=== PATIENT | male | born 1965 | race Caucasian/White ===

== ENCOUNTER 2020-10-28 06:57 | Day surgery (SDC) | payer BC, MEDICAID ==
[2020-10-22 13:48] VITALS: BMI 34.9
[~2020-10-28 06:57] MED LIST: ACETAMINOPHEN TAB 500 MG TAB PO PRN; DEXAMETHASONE SOD PHOSPHATE 4 MG/ML 1 ML VIAL IV ONE; HEPARIN SODIUM,PORCINE 5,000 UNIT/ML 1 ML VIAL SQ PRN; LACTATED RINGERS 1,000 ML IV SCH; LIDOCAINE 1% (10MG/ML) FOR IV START INTRADERMA PRN; ONDANSETRON 4 MG/2 ML VIAL IVP ONE; Pre Op ABX Message 1 EACH MISC MISCELLANE ONE
--- NOTE | 2020-10-28 08:59 | P.GSHP ---
History of Present Illness H&P Date: 10/28/20 Chief Complaint: Muscle weakness This a 55-year-old male presents today for left thigh muscle biopsy. Patient is being worked up for myopathy. Past Medical History Past Medical History: GERD/Reflux, Hyperlipidemia, Sleep Apnea/CPAP/BIPAP Additional Past Medical History / Comment(s): new onset muscle pain and weakness History of Any Multi-Drug Resistant Organisms: None Reported Past Surgical History: Appendectomy, Back Surgery, Orthopedic Surgery Additional Past Surgical History / Comment(s): vein stripping right leg Past Anesthesia/Blood Transfusion Reactions: No Reported Reaction Past Psychological History: No Psychological Hx Reported Smoking Status: Never smoker Past Alcohol Use History: Occasional Past Drug Use History: None Reported - Past Family History Father Additional Family Medical History / Comment(s): from heart valve issues Brother(s) Additional Family Medical History / Comment(s): from heart valve issues Medications and Allergies Home Medications Medication Instructions Recorded Confirmed Type Omeprazole 40 mg PO DAILY 10/22/20 10/28/20 History Allergies Allergy/AdvReac Type Severity Reaction Status Date / Time No Known Allergies Allergy Verified 10/28/20 07:24 Surgical - Exam Vital Signs Temp Pulse Resp BP Pulse Ox 98 F 77 17 146/77 100 10/28/20 07:33 10/28/20 07:33 10/28/20 07:33 10/28/20 07:33 10/28/20 07:33 - General well developed, well nourished, no distress - Eyes PERRL - ENT normal pinna - Neck no masses - Respiratory normal expansion - Cardiovascular Rhythm: regular - Abdomen Abdomen: soft, non tender Assessment and Plan Assessment: Myopathy. We'll perform left thigh muscle biopsy
[2020-10-28] MEDS ORDERED: fentaNYL (PF) 50 MCG/ML 2 ML AMP ONE (09:12)
[2020-10-28] MEDS ORDERED: LIDOCAINE 1% INJ 10MG/ML (20 ML MDV) ONE (09:12)
[2020-10-28] MEDS ORDERED: PROPOFOL 10 MG/ML 20 ML VIAL IV ONE (09:12)
[2020-10-28] MEDS ORDERED: MIDAZOLAM 2 MG/2 ML VIAL ONE (09:12)
[2020-10-28] MEDS ORDERED: SODIUM CHLORIDE 0.9% 50 ML with ceFAZolin 2,000 MG IV ONE ×2 (09:37)
[2020-10-28] MEDS ORDERED: BUPIVACAIN-EPI 0.5%-1:200,000 30 ML VIAL SQ ONE (09:40)
[2020-10-28 10:10] VITALS: RESP 16; TEMP 97.6
--- NOTE | 2020-10-28 10:22 | P.OP ---
Date of Procedure: 10/28/20 Preoperative Diagnosis: Myopathy Postoperative Diagnosis: Myopathy Procedure(s) Performed: Left thigh muscle biopsy Anesthesia: MAC Surgeon: Robert Ledezma Estimated Blood Loss (ml): 5 Pathology: other Condition: stable (Phimosis biopsy) Disposition: PACU Description of Procedure: Patient's placed on the operating table in the supine position. She received general anesthesia. His left thigh was prepped and draped usual sterile fashion. The lung to skin incision was made. The subcu tissue divided. The fascial muscle was divided. And then the muscle was seen. The muscle was suture ligated proximally distally using 0 Vicryl suture. Using a 15 blade the muscle was cut and then divided and then sent to pathology. The fascia was closed with 0 Vicryl. Skin was closed interrupted 3-0 Monocryl suture. Dermabond was applied. Patient top she will was sent to recovery in stable condition.
[2020-10-28 11:06] VITALS: BP 132/71; PULSE 69
== END 2020-10-28 11:30 | disposition home or self-care (01) ==
LOC: OR 06:57
PROVIDERS: ATTEND Surgery
DX: G72.9 Myopathy, unspecified (principal); K21.9 Gastro-esophageal reflux disease without esophagitis; E78.5 Hyperlipidemia, unspecified; G47.33 Obstructive sleep apnea (adult) (pediatric); Z99.89 Dependence on other enabling machines and devices; Z98.890 Other specified postprocedural states; Z90.89 Acquired absence of other organs; Z82.49 Family history of ischemic heart disease and other diseases of the circulatory system; Z79.899 Other long term (current) drug therapy; I73.9 Peripheral vascular disease, unspecified; Z96.5 Presence of tooth-root and mandibular implants
CPT/HCPCS: 20205; J2250; J1100; J2405; J0690; J2001; J3010; J2704